=== PATIENT | female | born 1990 | race Caucasian/White ===

== ENCOUNTER 2018-10-21 14:47 | Emergency (ER) | payer MEDICAID ==
[~2018-10-21] VITALS: Ht 165.1 cm; Wt 59.1 kg
[~2018-10-21 14:47] MED LIST: ACET-2119 PO; IBUP-1051 PO; NO HOME MEDS
[2018-10-21] MEDS ORDERED: ipratropium/albuterol 3ml nebule NEB ONE (17:45)
--- NOTE | 2018-10-21 17:59 | NUR ---
PT PULLED IN TO TRIAGE AND TONIA TO DO A MSE
[2018-10-21 18:15] LABS: CLARITY,URINE CLOUDY (Clear); COLOR,URINE YELLOW (Yellow); GLUCOSE, URINE NEGATIVE (Neg); KETONES,URINE NEGATIVE (Neg); LEUKOCYTE ESTERASE ,URINE NEGATIVE (Neg); NITRITES, URINE NEGATIVE (Neg); OCCULT BLOOD,URINE NEGATIVE (Neg); PROTEIN,URINE NEGATIVE (Neg); UA COLLECTION TYPE CLN CATCH MIDSTREAM; UROBILINOGEN,URINE 0.2 E.U/dL (0.2-1.0)
[2018-10-21 18:16] LABS: URINE HCG NEGATIVE (NEG)
[2018-10-21 18:26] LABS: BACTERIA,URINE 3+ /HPF (Neg)
[2018-10-21 18:27] LABS: RBC,URINE 0-2 /HPF (0-2)
[2018-10-21 18:28] LABS: SQUAMOUS EPITHELIAL CELL,UR MANY /LPF (FEW)
[2018-10-21 18:40] LABS: BASOPHILS # (AUTO) 0.1 X10'3 (0-0.2); BASOPHILS % (AUTO) 0.6 % (0-1); EOSINOPHILS # (AUTO) 0.2 X10'3 (0-0.9); EOSINOPHILS % (AUTO) 1.8 % (0-6); HEMATOCRIT 43.9 % (35.0-45.0); HEMOGLOBIN 14.4 g/dl (12.0-16.0); LYMPHOCYTES # (AUTO) 2.4 X10'3 (1.1-4.8); LYMPHOCYTES % (AUTO) 27.6 % (21-51); MEAN CORPUSCULAR HEMOGLOBIN 29.9 PG (27.0-31.0); MEAN CORPUSCULAR HGB CONC 32.7 g/dL (33.0-36.5); MEAN CORPUSCULAR VOLUME 91.3 FL (78-98); MEAN PLATELET VOLUME 8.4 FL (7.4-10.4); MONOCYTES # (AUTO) 0.4 X10'3 (0-0.9); MONOCYTES % (AUTO) 4.8 % (2-12); NEUTROPHILS # (AUTO) 5.6 X10'3 (1.8-7.7); NEUTROPHILS % (AUTO) 65.2 % (42-75); PLATELET COUNT 252 X10'3 (140-440); RED BLOOD COUNT 4.81 X10'6 (4.20-5.60); RED CELL DISTRIBUTION WIDTH 13.6 % (11.5-14.5); WHITE BLOOD COUNT 8.6 X10'3 (4.5-11.0)
[2018-10-21 18:50] LABS: ALANINE AMINOTRANSFERASE 39 U/L (12-78); ALBUMIN/GLOBULIN RATIO 1.1 (1.1-1.5); ALKALINE PHOSPHATASE 71 IU/L (46-116); ANION GAP 6 (8-16); ASPARTATE AMINO TRANSFERASE 20 U/L (10-37); BILIRUBIN,TOTAL 0.2 MG/DL (0.1-1.0); BLOOD UREA NITROGEN 14 MG/DL (7-18); BUN/CREATININE RATIO 15.4 (6.6-38.0); CALCIUM 9.2 MG/DL (8.5-10.1); CHLORIDE 101 MMOL/L (99-107); CREATININE 0.91 MG/DL (0.40-0.90); GLUCOSE 96 MG/DL (70-104); LIPASE 258 U/L (73-393); POTASSIUM 4.5 MMOL/L (3.5-5.1); SODIUM 137 MMOL/L (135-145); TOTAL CARBON DIOXIDE 30.4 MMOL/L (24-32); TOTAL PROTEIN 7.6 G/DL (6.4-8.2); eGFR 74 ML/MIN
[2018-10-21] MEDS ORDERED: proCHLORperazine 10 MG/2 ml inj IV ONE (20:15)
[2018-10-21] MEDS ORDERED: ketorolac tromethamine 15mg/ml inj. IM ONE (20:15)
[2018-10-21] MEDS ORDERED: diphenhydrAMINE 50 mg/ml inj IV ONE (20:15)
[2018-10-21] MEDS ORDERED: POLY17PO10 PO (21:17)
[2018-10-21] MEDS ORDERED: diphenhydrAMINE 50 mg/ml inj IM ONE (21:50)
[2018-10-21] MEDS ORDERED: proCHLORperazine 10 MG/2 ml inj IM ONE (21:50)
[2018-10-21 22:36] VITALS: BP 140/78
== END 2018-10-21 22:38 | disposition home or self-care (01) ==
LOC: ER 14:48
DX: K59.00 Constipation, unspecified (principal); R42 Dizziness and giddiness; R31.9 Hematuria, unspecified; F17.200 Nicotine dependence, unspecified, uncomplicated; F12.90 Cannabis use, unspecified, uncomplicated; Z90.49 Acquired absence of other specified parts of digestive tract; Z91.040 Latex allergy status; Z79.899 Other long term (current) drug therapy
CPT/HCPCS: 36415; 74176; 80053; 81001; 81025; 83690; 84443; 85025; 96372; 99284; J0780; J1200; J1885; 93005

== ENCOUNTER 2018-10-26 21:48 | Emergency (ER) | payer MEDICAID ==
[~2018-10-26] VITALS: Ht 165.1 cm; Wt 75.0 kg
[~2018-10-26 21:48] MED LIST changes: +POLY17PO10 PO
[2018-10-26] MEDS ORDERED: LORazepam 1 MG tablet PO ONE (21:55)
[2018-10-26 22:34] VITALS: BP 130/75
[2018-10-26 22:55] LABS: BASOPHILS % (AUTO) 0.5 % (0-1); EOSINOPHILS # (AUTO) 0.1 X10'3 (0-0.9); EOSINOPHILS % (AUTO) 0.7 % (0-6); HEMATOCRIT 39.5 % (35.0-45.0); HEMOGLOBIN 13.3 g/dl (12.0-16.0); LYMPHOCYTES # (AUTO) 2.6 X10'3 (1.1-4.8); LYMPHOCYTES % (AUTO) 32.4 % (21-51); MEAN CORPUSCULAR HEMOGLOBIN 30.1 PG (27.0-31.0); MEAN CORPUSCULAR HGB CONC 33.6 g/dL (33.0-36.5); MEAN CORPUSCULAR VOLUME 89.5 FL (78-98); MEAN PLATELET VOLUME 8.6 FL (7.4-10.4); MONOCYTES # (AUTO) 0.5 X10'3 (0-0.9); MONOCYTES % (AUTO) 6.6 % (2-12); NEUTROPHILS # (AUTO) 4.8 X10'3 (1.8-7.7); NEUTROPHILS % (AUTO) 59.8 % (42-75); PLATELET COUNT 216 X10'3 (140-440); RED BLOOD COUNT 4.42 X10'6 (4.20-5.60); RED CELL DISTRIBUTION WIDTH 13.4 % (11.5-14.5); WHITE BLOOD COUNT 8.1 X10'3 (4.5-11.0)
[2018-10-26 23:08] LABS: ALANINE AMINOTRANSFERASE 44 U/L (12-78); ALBUMIN 4.2 G/DL (3.4-5.0); ALBUMIN/GLOBULIN RATIO 1.5 (1.1-1.5); ALKALINE PHOSPHATASE 62 IU/L (46-116); ANION GAP 13 (8-16); ASPARTATE AMINO TRANSFERASE 19 U/L (10-37); BILIRUBIN,TOTAL 0.7 MG/DL (0.1-1.0); BLOOD UREA NITROGEN 13 MG/DL (7-18); BUN/CREATININE RATIO 15.7 (6.6-38.0); CALCIUM 9.5 MG/DL (8.5-10.1); CHLORIDE 100 MMOL/L (99-107); CREATININE 0.83 MG/DL (0.40-0.90); ETHANOL < 0.010 GM/DL (0.0-0.010); GLUCOSE 98 MG/DL (70-104); POTASSIUM 3.3 MMOL/L (3.5-5.1); SODIUM 137 MMOL/L (135-145); TOTAL CARBON DIOXIDE 24.4 MMOL/L (24-32); eGFR 82 ML/MIN
[2018-10-26] MEDS ORDERED: potassium Cl oral solution 20 MEQ/15 ML PO ONE (23:20)
[2018-10-26 23:35] LABS: URINE HCG NEGATIVE (NEG)
[2018-10-26 23:36] LABS: CLARITY,URINE SLIGHTLY CLOUDY (Clear); COLOR,URINE YELLOW (Yellow); GLUCOSE, URINE NEGATIVE (Neg); KETONES,URINE >=80 mg/dl (Neg); LEUKOCYTE ESTERASE ,URINE SMALL (Neg); NITRITES, URINE POSITIVE (Neg); OCCULT BLOOD,URINE TRACE-INTACT (Neg); PROTEIN,URINE NEGATIVE (Neg); UROBILINOGEN,URINE 0.2 E.U/dL (0.2-1.0)
[2018-10-26 23:38] LABS: UA COLLECTION TYPE CLN CATCH MIDSTREAM
[2018-10-26] MEDS ORDERED: BACDS PO (23:42)
[2018-10-26 23:46] LABS: BACTERIA,URINE 4+ /HPF (Neg)
[2018-10-26 23:47] LABS: RBC,URINE 0-2 /HPF (0-2); SQUAMOUS EPITHELIAL CELL,UR MODERATE /LPF (FEW)
[2018-10-26 23:48] LABS: MUCUS STRANDS FEW /LPF (Neg)
[2018-10-26 23:49] LABS: URINE AMPHETAMINE SCREEN NEGATIVE (Neg); URINE BARBITUATE SCREEN NEGATIVE (Neg); URINE BENZODIAZEPINES SCREEN NEGATIVE (Neg); URINE CANNABINOID SCREEN POSITIVE (Neg); URINE COCAINE SCREEN POSITIVE (Neg); URINE METHADONE SCREEN NEGATIVE (Neg); URINE OPIATE SCREEN NEGATIVE (Neg); URINE PHENCYCLIDINE SCREEN NEGATIVE (Neg)
[2018-10-27] MEDS ORDERED: LORazepam 1 MG tablet PO ONE (00:55)
== END 2018-10-26 23:49 | disposition home or self-care (01) ==
LOC: ER 21:49
DX: F41.9 Anxiety disorder, unspecified (principal); R07.89 Other chest pain; R44.1 Visual hallucinations; N39.0 Urinary tract infection, site not specified; F12.90 Cannabis use, unspecified, uncomplicated; Z90.49 Acquired absence of other specified parts of digestive tract; Z91.040 Latex allergy status; Z79.899 Other long term (current) drug therapy
CPT/HCPCS: 36415; 80053; 80305; 80320; 81001; 81025; 85025; 87077; 87088; 87186; 93005; 99284

== ENCOUNTER 2019-03-31 16:51 | Emergency (ER) | payer MEDICAID ==
[~2019-03-31] VITALS: Ht 165.1 cm; Wt 68.8 kg
[~2019-03-31 16:51] MED LIST changes: -POLY17PO10 PO
[2019-03-31 17:08] VITALS: BP 119/79
[2019-03-31] MEDS ORDERED: SULF1TAB49 PO (17:18)
== END 2019-03-31 17:36 | disposition home or self-care (01) ==
LOC: ER 16:51
DX: L03.114 Cellulitis of left upper limb (principal); F12.90 Cannabis use, unspecified, uncomplicated; Z87.11 Personal history of peptic ulcer disease; Z90.49 Acquired absence of other specified parts of digestive tract; Z91.040 Latex allergy status
CPT/HCPCS: 99283

== ENCOUNTER 2019-04-04 19:58 | Emergency (ER) | payer MEDICAID ==
[~2019-04-04] VITALS: Ht 165.1 cm; Wt 69.5 kg
[~2019-04-04 19:58] MED LIST changes: +SULF1TAB49 PO
[2019-04-04 21:46] LABS: BASOPHILS # (AUTO) 0.1 X10'3 (0-0.2); BASOPHILS % (AUTO) 0.6 % (0-1); EOSINOPHILS # (AUTO) 0.2 X10'3 (0-0.9); EOSINOPHILS % (AUTO) 2.6 % (0-6); HEMATOCRIT 40.2 % (35.0-45.0); HEMOGLOBIN 13.6 g/dl (12.0-16.0); LYMPHOCYTES # (AUTO) 2.6 X10'3 (1.1-4.8); LYMPHOCYTES % (AUTO) 29.3 % (21-51); MEAN CORPUSCULAR HEMOGLOBIN 30.8 PG (27.0-31.0); MEAN CORPUSCULAR HGB CONC 33.8 g/dL (33.0-36.5); MEAN CORPUSCULAR VOLUME 91.3 FL (78-98); MEAN PLATELET VOLUME 8.3 FL (7.4-10.4); MONOCYTES # (AUTO) 0.6 X10'3 (0-0.9); MONOCYTES % (AUTO) 6.4 % (2-12); NEUTROPHILS # (AUTO) 5.5 X10'3 (1.8-7.7); NEUTROPHILS % (AUTO) 61.1 % (42-75); PLATELET COUNT 214 X10'3 (140-440); RED CELL DISTRIBUTION WIDTH 12.6 % (11.5-14.5)
[2019-04-04 21:47] LABS: URINE HCG NEGATIVE (NEG)
[2019-04-04 21:51] LABS: GLUCOSE, URINE NEGATIVE (Neg); KETONES,URINE 15 mg/dl (Neg); LEUKOCYTE ESTERASE ,URINE NEGATIVE (Neg); NITRITES, URINE NEGATIVE (Neg); OCCULT BLOOD,URINE NEGATIVE (Neg); PROTEIN,URINE NEGATIVE (Neg); UROBILINOGEN,URINE 0.2 E.U/dL (0.2-1.0)
[2019-04-04 21:57] LABS: CLARITY,URINE SLIGHTLY CLOUDY (Clear); COLOR,URINE YELLOW (Yellow); UA COLLECTION TYPE CLN CATCH MIDSTREAM
[2019-04-04 21:59] LABS: ALANINE AMINOTRANSFERASE 28 U/L (12-78); ALBUMIN 3.8 G/DL (3.4-5.0); ALBUMIN/GLOBULIN RATIO 1.2 (1.1-1.5); ALKALINE PHOSPHATASE 68 IU/L (46-116); ANION GAP 11 (8-16); ASPARTATE AMINO TRANSFERASE 12 U/L (10-37); BILIRUBIN,TOTAL 0.2 MG/DL (0.1-1.0); BLOOD UREA NITROGEN 11 MG/DL (7-18); BUN/CREATININE RATIO 13.3 (6.6-38.0); CALCIUM 8.6 MG/DL (8.5-10.1); CHLORIDE 101 MMOL/L (99-107); CREATININE 0.83 MG/DL (0.40-0.90); GLUCOSE 95 MG/DL (70-104); POTASSIUM 3.5 MMOL/L (3.5-5.1); SODIUM 137 MMOL/L (135-145); TOTAL PROTEIN 7.1 G/DL (6.4-8.2); eGFR 82 ML/MIN
[2019-04-04 22:01] LABS: BACTERIA,URINE FEW /HPF (Neg); MUCUS STRANDS MANY /LPF (Neg); RBC,URINE NONE SEEN /HPF (0-2); SQUAMOUS EPITHELIAL CELL,UR MODERATE /LPF (FEW); WBC,URINE 0-4 /HPF (0-4)
[2019-04-04 22:02] LABS: MAGNESIUM 1.7 MG/DL (1.5-2.4); PARTIAL THROMBOPLASTIN TIME 30 SECONDS (22-32); TROPONIN I < 0.04 NG/ML (0.0-0.05)
[2019-04-04] MEDS ORDERED: DOXYCYCLINE 100MG CAPSULE PO STA (22:46)
[2019-04-04] MEDS ORDERED: DOXY100C2 PO (22:48)
[2019-04-04] MEDS ORDERED: IBUP-1985 PO (22:48)
[2019-04-04 23:00] VITALS: BP 116/40
== END 2019-04-04 23:00 | disposition home or self-care (01) ==
LOC: ER 19:59
DX: N76.4 Abscess of vulva (principal); L03.114 Cellulitis of left upper limb; R06.02 Shortness of breath; R19.7 Diarrhea, unspecified; R30.0 Dysuria; R05 Cough; N89.8 Other specified noninflammatory disorders of vagina; F12.90 Cannabis use, unspecified, uncomplicated; F10.99 Alcohol use, unspecified with unspecified alcohol-induced disorder; Z90.49 Acquired absence of other specified parts of digestive tract; Z86.14 Personal history of Methicillin resistant Staphylococcus aureus infection; Z91.040 Latex allergy status; Z79.899 Other long term (current) drug therapy; Y90.9 Presence of alcohol in blood, level not specified
CPT/HCPCS: 36415; 71045; 80053; 81001; 81025; 83605; 83735; 84145; 84484; 85025; 85610; 85730; 87040; 93005; 99284

== ENCOUNTER 2019-04-22 09:50 | Emergency (ER) | payer MEDICAID ==
[~2019-04-22] VITALS: Ht 165.1 cm; Wt 68.2 kg
[~2019-04-22 09:50] MED LIST changes: +DOXY100C2 PO; +IBUP-1985 PO; -SULF1TAB49 PO
[2019-04-22] MEDS ORDERED: LIDOcaine 1% w/EPI 1:200,000 injection 10mL vial IM ONE (11:15)
[2019-04-22] MEDS ORDERED: TETanus/Pertussis (Acell)/Diphther VAC/PF (Tdap-Adult) 0.5ml syringe IM ONE (11:15)
[2019-04-22] MEDS ORDERED: LIDOcaine 1% W/epiNEPHrine 1:100,000 20ml vial IJ ONE (11:15)
[2019-04-22] MEDS ORDERED: LIDOcaine 1% W/epiNEPHrine 1:200,000 10ml vial IJ STA (11:50)
[2019-04-22 12:31] VITALS: BP 104/59
== END 2019-04-22 12:33 | disposition home or self-care (01) ==
LOC: ER 09:51
DX: L02.414 Cutaneous abscess of left upper limb (principal); R55 Syncope and collapse; R42 Dizziness and giddiness; F10.99 Alcohol use, unspecified with unspecified alcohol-induced disorder; F12.90 Cannabis use, unspecified, uncomplicated; Z86.14 Personal history of Methicillin resistant Staphylococcus aureus infection; Z87.891 Personal history of nicotine dependence; Z90.49 Acquired absence of other specified parts of digestive tract; Z91.040 Latex allergy status; Z79.899 Other long term (current) drug therapy; Y90.9 Presence of alcohol in blood, level not specified
CPT/HCPCS: 10060; 90471; 93005; 99284

== ENCOUNTER 2019-05-12 23:30 | Emergency (ER) | payer MEDICAID ==
[~2019-05-12] VITALS: Ht 165.1 cm; Wt 68.1 kg
[~2019-05-12 23:30] MED LIST changes: -DOXY100C2 PO
[2019-05-12 23:49] LABS: COLOR,URINE YELLOW (Yellow); GLUCOSE, URINE NEGATIVE (Neg); KETONES,URINE TRACE mg/dl (Neg); LEUKOCYTE ESTERASE ,URINE NEGATIVE (Neg); NITRITES, URINE NEGATIVE (Neg); OCCULT BLOOD,URINE NEGATIVE (Neg); PROTEIN,URINE NEGATIVE (Neg)
[2019-05-12 23:51] LABS: CLARITY,URINE SLIGHTLY CLOUDY (Clear); UA COLLECTION TYPE CLN CATCH MIDSTREAM; URINE HCG NEGATIVE (NEG)
[2019-05-12 23:52] LABS: BASOPHILS % (AUTO) 0.7 % (0-1); EOSINOPHILS # (AUTO) 0.1 X10'3 (0-0.9); EOSINOPHILS % (AUTO) 2.1 % (0-6); HEMATOCRIT 41.3 % (35.0-45.0); LYMPHOCYTES # (AUTO) 2.2 X10'3 (1.1-4.8); LYMPHOCYTES % (AUTO) 33.8 % (21-51); MEAN CORPUSCULAR HEMOGLOBIN 30.9 PG (27.0-31.0); MEAN CORPUSCULAR HGB CONC 33.9 g/dL (33.0-36.5); MEAN CORPUSCULAR VOLUME 91.1 FL (78-98); MEAN PLATELET VOLUME 8.3 FL (7.4-10.4); MONOCYTES # (AUTO) 0.5 X10'3 (0-0.9); MONOCYTES % (AUTO) 7.9 % (2-12); NEUTROPHILS # (AUTO) 3.6 X10'3 (1.8-7.7); NEUTROPHILS % (AUTO) 55.5 % (42-75); PLATELET COUNT 205 X10'3 (140-440); RED BLOOD COUNT 4.53 X10'6 (4.20-5.60); RED CELL DISTRIBUTION WIDTH 12.9 % (11.5-14.5); WHITE BLOOD COUNT 6.5 X10'3 (4.5-11.0)
[2019-05-12 23:55] LABS: BACTERIA,URINE 2+ /HPF (Neg); MUCUS STRANDS MODERATE /LPF (Neg); RBC,URINE NONE SEEN /HPF (0-2); SQUAMOUS EPITHELIAL CELL,UR MANY /LPF (FEW); WBC,URINE 0-4 /HPF (0-4)
[2019-05-13 00:07] LABS: ALANINE AMINOTRANSFERASE 39 U/L (12-78); ALBUMIN 4.1 G/DL (3.4-5.0); ALBUMIN/GLOBULIN RATIO 1.2 (1.1-1.5); ALKALINE PHOSPHATASE 67 IU/L (46-116); ANION GAP 8 (8-16); ASPARTATE AMINO TRANSFERASE 36 U/L (10-37); BILIRUBIN,TOTAL 1.1 MG/DL (0.1-1.0); BLOOD UREA NITROGEN 9 MG/DL (7-18); BUN/CREATININE RATIO 9.2 (6.6-38.0); CALCIUM 8.9 MG/DL (8.5-10.1); CHLORIDE 101 MMOL/L (99-107); CREATININE 0.98 MG/DL (0.40-0.90); GLUCOSE 106 MG/DL (70-104); SODIUM 139 MMOL/L (135-145); TOTAL CARBON DIOXIDE 30.1 MMOL/L (24-32); TOTAL PROTEIN 7.5 G/DL (6.4-8.2); eGFR 68 ML/MIN
[2019-05-13 00:10] LABS: POTASSIUM 2.9 MMOL/L (3.5-5.1)
[2019-05-13] MEDS ORDERED: normal saline 1000ML IV soln IVB ONE (00:10)
[2019-05-13] MEDS ORDERED: ketorolac tromethamine 15mg/ml inj. IV ONE (00:10)
[2019-05-13] MEDS ORDERED: potassium Cl 20 mEq SR tablet PO STA (00:35)
[2019-05-13 01:06] VITALS: BP 130/78
== END 2019-05-13 01:12 | disposition home or self-care (01) ==
LOC: ER 23:31
DX: R10.84 Generalized abdominal pain (principal); R11.2 Nausea with vomiting, unspecified; R19.7 Diarrhea, unspecified; R30.0 Dysuria; Z86.14 Personal history of Methicillin resistant Staphylococcus aureus infection; F12.90 Cannabis use, unspecified, uncomplicated; Z90.49 Acquired absence of other specified parts of digestive tract; Z79.899 Other long term (current) drug therapy; Z91.040 Latex allergy status
CPT/HCPCS: 36415; 80053; 81001; 81025; 85025; 96361; 96374; 99283; J1885; J7030; 96366

== ENCOUNTER 2019-08-12 18:47 | Emergency (ER) | payer MEDICAID ==
[~2019-08-12] VITALS: Ht 165.1 cm; Wt 65.9 kg
[2019-08-12 18:51] VITALS: BP 126/69
[2019-08-12 19:43] LABS: CLARITY,URINE CLEAR (Clear); COLOR,URINE YELLOW (Yellow); GLUCOSE, URINE NEGATIVE (Neg); KETONES,URINE NEGATIVE (Neg); LEUKOCYTE ESTERASE ,URINE NEGATIVE (Neg); NITRITES, URINE NEGATIVE (Neg); OCCULT BLOOD,URINE NEGATIVE (Neg); PROTEIN,URINE NEGATIVE (Neg); UROBILINOGEN,URINE 0.2 E.U/dL (0.2-1.0)
[2019-08-12 19:44] LABS: URINE HCG NEGATIVE (NEG)
[2019-08-12 19:48] LABS: UA COLLECTION TYPE CLN CATCH MIDSTREAM
[2019-08-12] MEDS ORDERED: CefTRIAXone 250MG IM Kit w/LIDOcaine IM ONE (20:00)
[2019-08-12] MEDS ORDERED: azithromycin 250mg tablet PO ONE (20:00)
[2019-08-12] MEDS ORDERED: ACYC200C PO (20:06)
== END 2019-08-12 20:53 | disposition home or self-care (01) ==
LOC: ER 18:48
DX: R30.0 Dysuria (principal); F12.90 Cannabis use, unspecified, uncomplicated; Z90.49 Acquired absence of other specified parts of digestive tract; Z86.14 Personal history of Methicillin resistant Staphylococcus aureus infection; Z87.11 Personal history of peptic ulcer disease; Z91.040 Latex allergy status
CPT/HCPCS: 36415; 81003; 81025; 87491; 87591; 96372; 99283; J0696

== ENCOUNTER 2020-01-13 14:31 | Emergency (ER) | payer MEDICAID ==
[~2020-01-13] VITALS: Ht 165.1 cm; Wt 69.5 kg
[2020-01-13 14:57] LABS: BASOPHILS # (AUTO) 0.1 X10'3 (0-0.2); BASOPHILS % (AUTO) 0.6 % (0-1); EOSINOPHILS # (AUTO) 0.2 X10'3 (0-0.9); EOSINOPHILS % (AUTO) 1.5 % (0-6); HEMOGLOBIN 13.4 g/dl (12.0-16.0); LYMPHOCYTES # (AUTO) 2.6 X10'3 (1.1-4.8); LYMPHOCYTES % (AUTO) 23.7 % (21-51); MEAN CORPUSCULAR HEMOGLOBIN 30.2 PG (27.0-31.0); MEAN CORPUSCULAR HGB CONC 33.5 g/dL (33.0-36.5); MEAN PLATELET VOLUME 7.8 FL (7.4-10.4); MONOCYTES # (AUTO) 0.6 X10'3 (0-0.9); MONOCYTES % (AUTO) 5.9 % (2-12); NEUTROPHILS # (AUTO) 7.4 X10'3 (1.8-7.7); NEUTROPHILS % (AUTO) 68.3 % (42-75); PLATELET COUNT 257 X10'3 (140-440); RED BLOOD COUNT 4.44 X10'6 (4.20-5.60); RED CELL DISTRIBUTION WIDTH 12.9 % (11.5-14.5); WHITE BLOOD COUNT 10.8 X10'3 (4.5-11.0)
[2020-01-13 15:12] LABS: ALANINE AMINOTRANSFERASE 21 U/L (12-78); ALBUMIN 3.6 G/DL (3.4-5.0); ALBUMIN/GLOBULIN RATIO 1.1 (1.1-1.5); ALKALINE PHOSPHATASE 43 IU/L (46-116); ANION GAP 9 (8-16); ASPARTATE AMINO TRANSFERASE 12 U/L (10-37); BILIRUBIN,TOTAL 0.4 MG/DL (0.1-1.0); BLOOD UREA NITROGEN 7 MG/DL (7-18); BUN/CREATININE RATIO 10.4 (6.6-38.0); CALCIUM 8.9 MG/DL (8.5-10.1); CHLORIDE 104 MMOL/L (99-107); CREATININE 0.67 MG/DL (0.40-0.90); GLUCOSE 90 MG/DL (70-104); LIPASE 212 U/L (73-393); POTASSIUM 3.6 MMOL/L (3.5-5.1); SODIUM 139 MMOL/L (135-145); eGFR > 90 ML/MIN
[2020-01-13 16:31] LABS: CLARITY,URINE SLIGHTLY CLOUDY (Clear); COLOR,URINE YELLOW (Yellow); GLUCOSE, URINE NEGATIVE (Neg); KETONES,URINE >=80 mg/dl (Neg); LEUKOCYTE ESTERASE ,URINE NEGATIVE (Neg); NITRITES, URINE NEGATIVE (Neg); OCCULT BLOOD,URINE NEGATIVE (Neg); PROTEIN,URINE NEGATIVE (Neg); UROBILINOGEN,URINE 0.2 E.U/dL (0.2-1.0)
[2020-01-13 16:32] LABS: URINE HCG POSITIVE (NEG)
[2020-01-13 16:35] LABS: UA COLLECTION TYPE CLN CATCH MIDSTREAM
[2020-01-13 16:38] LABS: BACTERIA,URINE 4+ /HPF (Neg); MUCUS STRANDS MANY /LPF (Neg); RBC,URINE 0-2 /HPF (0-2); SQUAMOUS EPITHELIAL CELL,UR MANY /LPF (FEW); WBC,URINE 0-4 /HPF (0-4)
[2020-01-13 18:34] VITALS: BP 118/61
[2020-01-13 18:38] LABS: BETA HCG,QUANTITATIVE 211500 mIU/ml
== END 2020-01-13 18:37 | disposition home or self-care (01) ==
LOC: ER 14:32
DX: O26.891 Other specified pregnancy related conditions, first trimester (principal); R10.11 Right upper quadrant pain; R10.31 Right lower quadrant pain; R11.0 Nausea; R05 Cough; R19.7 Diarrhea, unspecified; Z3A.09 9 weeks gestation of pregnancy; F12.90 Cannabis use, unspecified, uncomplicated; Z87.11 Personal history of peptic ulcer disease; Z86.14 Personal history of Methicillin resistant Staphylococcus aureus infection; Z90.49 Acquired absence of other specified parts of digestive tract; Z72.89 Other problems related to lifestyle; Z91.040 Latex allergy status; Z79.899 Other long term (current) drug therapy
CPT/HCPCS: 36415; 76700; 76801; 80053; 81001; 81025; 83690; 84702; 85025; 99285

== ENCOUNTER 2024-01-10 12:18 | Emergency (ER) | payer MEDICAID ==
[~2024-01-10] VITALS: Ht 165.1 cm; Wt 106.5 kg
[2024-01-10 12:22] VITALS: TEMP 99.1
[2024-01-10 12:45] LABS: BILIRUBIN,URINE NEGATIVE (Neg); CLARITY,URINE SLIGHTLY CLOUDY (Clear); COLOR,URINE YELLOW (Yellow); GLUCOSE, URINE NEGATIVE (Neg); KETONES,URINE TRACE mg/dl (Neg); LEUKOCYTE ESTERASE ,URINE MODERATE (Neg); NITRITES, URINE NEGATIVE (Neg); OCCULT BLOOD,URINE SMALL (Neg); PROTEIN,URINE NEGATIVE (Neg); UROBILINOGEN,URINE 0.2 E.U/dL (0.2-1.0)
[2024-01-10 12:46] LABS: UA COLLECTION TYPE CLN CATCH MIDSTREAM
[2024-01-10 12:47] LABS: URINE HCG NEGATIVE (NEG)
[2024-01-10 12:56] LABS: SQUAMOUS EPITHELIAL CELL,UR MODERATE /LPF (FEW); WBC CLUMPS,URINE FEW /HPF (NEGATIVE); WBC,URINE TNTC /HPF (0-4)
[2024-01-10 12:56] LABS: BASOPHILS # (AUTO) 0.1 X10'3 (0-0.2); BASOPHILS % (AUTO) 0.4 % (0-1); EOSINOPHILS # (AUTO) 0.1 X10'3 (0-0.9); EOSINOPHILS % (AUTO) 0.4 % (0-6); HEMATOCRIT 43.6 % (35.0-45.0); HEMOGLOBIN 14.8 g/dl (12.0-16.0); LYMPHOCYTES # (AUTO) 1.7 X10'3 (1.1-4.8); LYMPHOCYTES % (AUTO) 12.4 % (21-51); MEAN CORPUSCULAR HEMOGLOBIN 30.5 PG (27.0-31.0); MEAN CORPUSCULAR HGB CONC 33.9 g/dL (33.0-36.5); MEAN CORPUSCULAR VOLUME 90.1 FL (78-98); MEAN PLATELET VOLUME 8.2 FL (7.4-10.4); MONOCYTES # (AUTO) 0.6 X10'3 (0-0.9); MONOCYTES % (AUTO) 4.8 % (2-12); PLATELET COUNT 205 X10'3 (140-440); RED BLOOD COUNT 4.84 X10'6 (4.20-5.60); RED CELL DISTRIBUTION WIDTH 12.3 % (11.5-14.5); WHITE BLOOD COUNT 13.4 X10'3 (4.5-11.0)
[2024-01-10 12:57] LABS: BACTERIA,URINE 1+ /HPF (Neg); RBC,URINE 0-2 /HPF (0-2)
[2024-01-10 13:09] LABS: ALANINE AMINOTRANSFERASE 60 U/L (12-78); ALBUMIN 3.6 G/DL (3.4-5.0); ALBUMIN/GLOBULIN RATIO 0.8 (1.1-1.5); ALKALINE PHOSPHATASE 120 IU/L (46-116); ANION GAP 8 (8-16); ASPARTATE AMINO TRANSFERASE 28 U/L (10-37); BLOOD UREA NITROGEN 6 MG/DL (7-18); BUN/CREATININE RATIO 6.9 (10.0-20.0); CALCIUM 9.1 MG/DL (8.5-10.1); CHLORIDE 98 MMOL/L (99-107); CREATININE 0.87 MG/DL (0.40-0.90); GLUCOSE 125 MG/DL (70-104); LIPASE 21 U/L (16-77); POTASSIUM 3.1 MMOL/L (3.5-5.1); SODIUM 135 MMOL/L (135-145); TOTAL CARBON DIOXIDE 29.2 MMOL/L (24-32); TOTAL PROTEIN 7.9 G/DL (6.4-8.2); eCRCL 84 ML/MIN; eGFR 75 ML/MIN
[2024-01-10] MEDS: ondansetron/PF 4mg/2ml inj IV ONE (13:18)
[2024-01-10] MEDS: ketorolac tromethamine 15mg/ml inj. IV ONE (13:18)
[2024-01-10] MEDS: CefTRIAXone 2gm/D5W 50ml BAG 50 ML IV ONE (13:19)
[2024-01-10] MEDS: normal saline 1000ML IV soln IV ONE (13:19)
[2024-01-10] MEDS: metoclopramide 5 mg/ml inj IV ONE (14:31)
[2024-01-10] MEDS: diphenhydrAMINE 50 mg/ml inj IV ONE (14:31)
[2024-01-10] MEDS: mag hydrox/Alum hydrox/simeth 30ml oral suspension PO ONE (14:31)
[2024-01-10] MEDS: LIDOcaine 2% Viscous 15ml cup MM PRN (14:32)
[2024-01-10] MEDS ORDERED: HYDR-3972 PO (15:37)
[2024-01-10] MEDS ORDERED: ONDA8TAB13 PO (15:37)
[2024-01-10] MEDS ORDERED: PHEN-716 PO (15:37)
[2024-01-10] MEDS ORDERED: CEPH-585 PO (15:37)
[2024-01-10 15:56] VITALS: BP 141/84; PULSE 89; RESP 16; O2SAT 98
== END 2024-01-10 15:57 | disposition home or self-care (01) ==
LOC: ER 12:19
DX: N39.0 Urinary tract infection, site not specified (principal); F12.90 Cannabis use, unspecified, uncomplicated; Z90.49 Acquired absence of other specified parts of digestive tract; Z91.040 Latex allergy status; Z91.018 Allergy to other foods; Z91.048 Other nonmedicinal substance allergy status; Z72.89 Other problems related to lifestyle; Z79.1 Long term (current) use of non-steroidal anti-inflammatories (NSAID)
CPT/HCPCS: 36415; 80053; 81001; 81025; 83605; 83690; 84145; 85025; 87040; 87077; 87088; 87186; 96365; 96375; 99284; J0696; J1200; J1885; J2405; J2765; J7030

== ENCOUNTER 2024-07-02 11:12 | Emergency (ER) | payer MEDICAID ==
[~2024-07-02] VITALS: Ht 165.1 cm; Wt 105.2 kg
[~2024-07-02 11:12] MED LIST changes: +ONDA-245 PO; +PHEN-716 PO
[2024-07-02 11:50] LABS: BASOPHILS # (AUTO) 0.1 X10'3 (0-0.2); EOSINOPHILS # (AUTO) 0.2 X10'3 (0-0.9); EOSINOPHILS % (AUTO) 1.9 % (0-6); HEMATOCRIT 45.2 % (35.0-45.0); HEMOGLOBIN 15.4 g/dl (12.0-16.0); LYMPHOCYTES # (AUTO) 2.1 X10'3 (1.1-4.8); LYMPHOCYTES % (AUTO) 26.6 % (21-51); MEAN CORPUSCULAR HEMOGLOBIN 30.4 PG (27.0-31.0); MEAN CORPUSCULAR VOLUME 89.3 FL (78-98); MEAN PLATELET VOLUME 7.9 FL (7.4-10.4); MONOCYTES # (AUTO) 0.4 X10'3 (0-0.9); MONOCYTES % (AUTO) 5.1 % (2-12); NEUTROPHILS # (AUTO) 5.3 X10'3 (1.8-7.7); NEUTROPHILS % (AUTO) 65.4 % (42-75); PLATELET COUNT 262 X10'3 (140-440); RED BLOOD COUNT 5.07 X10'6 (4.20-5.60); RED CELL DISTRIBUTION WIDTH 13.1 % (11.5-14.5)
[2024-07-02 11:58] LABS: URINE HCG NEGATIVE (NEG)
[2024-07-02 12:02] LABS: BILIRUBIN,URINE NEGATIVE (Neg); CLARITY,URINE CLEAR (Clear); COLOR,URINE YELLOW (Yellow); GLUCOSE, URINE NEGATIVE (Neg); KETONES,URINE NEGATIVE (Neg); LEUKOCYTE ESTERASE ,URINE NEGATIVE (Neg); NITRITES, URINE NEGATIVE (Neg); OCCULT BLOOD,URINE TRACE-INTACT (Neg); PH,URINE 5.5 (4.8-8.0); PROTEIN,URINE NEGATIVE (Neg); UROBILINOGEN,URINE 0.2 E.U/dL (0.2-1.0)
[2024-07-02 12:06] LABS: UA COLLECTION TYPE CLN CATCH MIDSTREAM
[2024-07-02 12:09] LABS: BACTERIA,URINE 1+ /HPF (Neg); MUCUS STRANDS MODERATE /LPF (Neg); SQUAMOUS EPITHELIAL CELL,UR MANY /LPF (FEW); WBC,URINE 0-4 /HPF (0-4)
[2024-07-02 12:12] LABS: ALANINE AMINOTRANSFERASE 83 U/L (12-78); ALBUMIN 3.8 G/DL (3.4-5.0); ALKALINE PHOSPHATASE 100 IU/L (46-116); ANION GAP 5 (8-16); ASPARTATE AMINO TRANSFERASE 32 U/L (10-37); BILIRUBIN,TOTAL 0.5 MG/DL (0.1-1.0); BLOOD UREA NITROGEN 7 MG/DL (7-18); BUN/CREATININE RATIO 7.9 (10.0-20.0); CALCIUM 8.8 MG/DL (8.5-10.1); CHLORIDE 103 MMOL/L (99-107); CREATININE 0.89 MG/DL (0.40-0.90); GLUCOSE 124 MG/DL (70-104); LIPASE 52 U/L (16-77); POTASSIUM 3.2 MMOL/L (3.5-5.1); SODIUM 138 MMOL/L (135-145); TOTAL CARBON DIOXIDE 29.7 MMOL/L (24-32); TOTAL PROTEIN 7.8 G/DL (6.4-8.2); eCRCL 81 ML/MIN; eGFR 73 ML/MIN
[2024-07-02 13:16] VITALS: TEMP 98.6
[2024-07-02 14:46] VITALS: BP 151/77; PULSE 80; RESP 17; O2SAT 98
[2024-07-02] MEDS ORDERED: DICY10CA88 PO (14:58)
== END 2024-07-02 15:20 | disposition home or self-care (01) ==
LOC: ER 11:13
DX: R10.11 Right upper quadrant pain (principal); K59.00 Constipation, unspecified; F12.90 Cannabis use, unspecified, uncomplicated; Z72.89 Other problems related to lifestyle; Z90.49 Acquired absence of other specified parts of digestive tract; Z91.040 Latex allergy status; Z79.1 Long term (current) use of non-steroidal anti-inflammatories (NSAID); Z79.899 Other long term (current) drug therapy
CPT/HCPCS: 36415; 80053; 81001; 81025; 83690; 85025; 99283